=== PATIENT | female | born 1980 | race Caucasian/White ===

== ENCOUNTER 2018-10-12 22:07 | Emergency (ER) | payer MEDICAID ==
[2018-10-12] MEDS: FAMOTIDINE 20 MG TAB PO (23:09)
[2018-10-12] MEDS: METOCLOPRAMIDE 10 MG TAB PO (23:09)
[2018-10-12] MEDS: LIDOCAINE/MYLANTA 40 ML BTL PO (23:09)
[2018-10-12 23:22] LABS: ADD MAN DIFF? NO
[2018-10-12 23:25] LABS: BASOPHILS % 0.5 % (0.0-2.0); EOSINOPHILS # 0.3 10^3/ul (0.0-0.5); EOSINOPHILS % 2.9 % (0.0-7.0); HEMATOCRIT 35.5 % (37.0-47.0); HEMOGLOBIN 11.3 g/dl (12.0-16.0); LYMPHOCYTES # 2.2 10^3/ul (0.8-2.9); LYMPHOCYTES % 25.3 % (15.0-51.0); MEAN CORPUSCULAR HGB CONC 31.8 g/dl (32.0-37.0); MEAN CORPUSCULAR VOLUME 88.1 fl (82.0-101.0); MEAN PLATELET VOLUME 11.6 fl (7.4-10.4); MONOCYTE # 0.8 10^3/ul (0.3-0.9); MONOCYTES % 8.6 % (0.0-11.0); NEUTROPHIL # 5.5 10^3/ul (1.6-7.5); NEUTROPHILS % 62.5 % (39.0-77.0); PLATELET COUNT 219 10^3/UL (140-415); RED BLOOD COUNT 4.03 10^6/ul (4.20-5.40); RED CELL DISTRIBUTION WIDTH 13.5 % (11.5-14.5)
[2018-10-12 23:25] LABS: WHITE BLOOD COUNT 8.8 10^3/ul (4.8-10.8)
[2018-10-12 23:46] LABS: ALANINE AMINOTRANSFERASE 29 IU/L (13-69); ALBUMIN 4.2 g/dl (3.3-4.9); ALKALINE PHOSPHATASE 65 IU/L (42-121); ANION GAP 10 (5-13); ASPARTATE AMINO TRANSFERASE 61 IU/L (15-46); BILIRUBIN,INDIRECT 0.4 mg/dl (0-1.1); BILIRUBIN,TOTAL 0.4 mg/dl (0.2-1.3); BLOOD UREA NITROGEN 21 mg/dl (7-20); CALCIUM 9.3 mg/dl (8.4-10.2); CARBON DIOXIDE 29 mmol/L (21-31); CHLORIDE 103 mmol/L (97-110); CREATININE 0.72 mg/dl (0.44-1.00); Estimated GFR > 60 mL/min (>60); GLUCOSE 92 mg/dl (70-220); LIPASE 70 U/L (23-300); POTASSIUM 3.9 mmol/L (3.5-5.1); SODIUM 142 mmol/L (135-144); TOTAL PROTEIN 7.7 g/dl (6.1-8.1)
== END 2018-10-13 00:32 | disposition home or self-care (01) ==
LOC: FTE 10-13 00:32
DX: K29.70 Gastritis, unspecified, without bleeding (principal)
CPT/HCPCS: 36415; 80053; 81025; 83690; 85025; 99283

== ENCOUNTER 2019-02-10 17:15 | Emergency (ER) | payer MEDICAID ==
[2019-02-10] MEDS: ONDANSETRON (ODT) 4 MG TAB ODT (17:48)
[2019-02-10] MEDS: FAMOTIDINE 20 MG TAB PO (17:48)
[2019-02-10] MEDS: LIDOCAINE/MYLANTA 40 ML BTL PO (17:48)
[2019-02-10] MEDS: KETOROLAC 30 MG INJ IM (18:14)
== END 2019-02-10 18:45 | disposition home or self-care (01) ==
LOC: FTE 17:15
DX: R11.2 Nausea with vomiting, unspecified (principal); E03.9 Hypothyroidism, unspecified
CPT/HCPCS: 81025; 96372; 99284-25